=== PATIENT | male | born 1960 | race Caucasian/White ===

== ENCOUNTER → 2020-05-28 | Outpatient (CLI) | payer OTHER ==
[~2020-05-28] MED LIST: CONTRAST GIVEN. MC PRN
[2020-05-28] MEDS: IOHEXOL 300 MG/ML 75 ML VIAL. IV ONE (14:30)
--- NOTE | 2020-05-28 17:40 | RAD ---
EXAM: CT Abdomen and Pelvis with and without IV contrast INDICATION: Reason: MICROSCOPIC HEMATURIA / Spl. Instructions: / History: TECHNIQUE: Multi-detector row CT images were acquired from the lung bases through the abdomen and pelvis with and without the use of IV contrast. Renal and pyelogram phase images were acquired of the abdomen and abdomen and pelvis respectively, in addition to noncontrast abdomen pelvis initial scan. Sagittal and coronal images were acquired from the transaxial data. All CT scans performed at this facility utilize dose optimization techniques as appropriate to the exam, including the following: Automated exposure control and adjustment of the mA and/or KV according to patient size (this includes techniques or standardized protocols for targeted exams where dose is indication/reason for exam). ORAL CONTRAST: None COMPARISON: None FINDINGS: The absence of IV contrast limits evaluation of soft tissue pathology. LOWER CHEST: Unremarkable LIVER: Heterogeneous hypoattenuation to the liver primarily involving the right hepatic lobe consistent with fatty infiltration and/or variant perfusion. BILIARY SYSTEM: Gallbladder is unremarkable. Bile ducts are not dilated. PANCREAS: Unremarkable SPLEEN: Unremarkable ADRENALS: Unremarkable KIDNEYS & URETERS: No stones on precontrast imaging in the urinary tract. Symmetric enhancement of the kidneys with no masses on the nephrogram phase images. No filling defects in the urinary collecting system on the pyelogram phase images. On axial image 135 of series 8, a diverticular-like defect in the right posterior lateral urinary bladder lumen approaches the distal right ureter but does not clearly communicate with it and does not appear to show a secondary exiting ureteral jet. This is favored to represent an incidental small bladder diverticulum rather than a ureterovesical fistula. BLADDER: Diffuse urinary bladder wall thickening is present, on both the precontrast and pyelogram phase images REPRODUCTIVE ORGANS: Prostate is not enlarged, measuring 3.5 cm in transverse diameter. GASTROINTESTINAL: Colonic diverticulosis without distention of the sigmoid colon. Otherwise stomach, small bowel, and colon are unremarkable. The appendix is normal. MESENTERY/PERITONEUM/RETROPERITONEUM: Unremarkable VASCULAR: Unremarkable LYMPH NODES: No adenopathy OSSEOUS & SOFT TISSUES: Unremarkable IMPRESSION: 1. No specific findings to explain microscopic hematuria are identified. 2. There is mild persistent diffuse urinary bladder wall thickening on both precontrast and pyelographic phase images. Correlate for any evidence of cystitis. 3. In addition, a probable small bladder diverticulum near the right ureteral orifice is seen as described above. Ureterovesical fistula is considered less likely. Electronically signed by: Saleem Aggarwal MD (05/28/2020 5:37 PM) [facility] [place]
== END | disposition home or self-care (01) ==
LOC: CT 14:13
PROVIDERS: ATTEND Urology
DX: K57.30 Diverticulosis of large intestine without perforation or abscess without bleeding (principal); N32.3 Diverticulum of bladder; R31.21 Asymptomatic microscopic hematuria
CPT/HCPCS: 74178; Q9967